=== PATIENT | male | born 1950 | race Caucasian/White ===

== ENCOUNTER 2025-01-01 13:28 | Outpatient (CLI) | payer MEDICARE, MEDICAID ==
--- NOTE | 2025-01-01 15:08 | RADIOLOGY REPORT ---
PROCEDURE: MR MRI HEAD Indication: AGE-RELATED COGNITIVE DECLINE COMPARISON: None TECHNIQUE: Multiplanar multisequence images of the brain are obtained. FINDINGS: There is no abnormal diffusion restriction. There is no intracranial hemorrhage. No extra-axial flui d collection, mass effect or midline shift. The ventricles are midline . Ventricles prominent size. M oderate global cerebral volume loss. [id number] periventricular and subcortical white matter T2 and FLAIR hyperintense changes.. The cisterns are patent. Normal intracranial flow voids are preserv ed. No abnormal susceptibility signal. The sinuses and mastoids are well pneumatized. The visualized orbits are unremarkable. IMPRESSION: No acute cerebrovascular ischemia. Lsik-lb-[id number] chronic microvascular ischemic changes. Moderate global cerebral volume loss. Ventricular prominence out of proportion to degree of cerebral volume loss. Correlate for entities arizmendi ch as normal pressure hydrocephalus.
== END 2025-01-01 23:59 | disposition home or self-care (01) ==
LOC: MRI02 13:28
PROVIDERS: ATTEND Nurse Practitioner Family
DX: I67.82 Cerebral ischemia (principal); R41.81 Age-related cognitive decline; G93.89 Other specified disorders of brain
CPT/HCPCS: 70551